=== PATIENT | male | born 1960 ===

== ENCOUNTER → 2021-06-28 | Outpatient (CLI) | payer BC, OTHER ==
[~2021-06-28] VITALS: Ht 188 cm; Wt 96.6 kg
[~2021-06-28] MED LIST: BEE POLLEN550 MG PO; CANDICIDAL CAP1 EACH PO; COQ-10100 MG PO; FISH OIL 1,0001 EAC9 PO; FLAXSEED340 GM PO; LODINE400 M1 PO; NAC600 MG PO; NEURONTIN300 MG PO; VALACYCLOVIR500 MG PO; VITAMIN B-121000 MC2 SUBLING; VITAMIN D350 MCG PO; ZINC50 M2 PO
--- NOTE | 2021-06-28 08:51 | NUR ---
Pain Clinic Assessment: 1. History of Osteoarthritis: Not Applicable History of Rheumatoid Arthritis: Not Applicable 2. Height: 6 ft. 2 in. 188.0 cm. Weight: 213.0 lb. oz. 96.616 kg. Patient's BMI: 27.3 3. Vital Signs: BP: Pulse: Resp: Temp: 02 Sat: ECG Mon: 4. Pain Intensity: 3 5. Fall Risk: Dizziness: N Needs help standing or walking: N Fallen in the last 3 months: N Fall risk comments: 6. Patient on Blood Thinner: None 7. History of Hypertension: N 8. Opioid Therapy greater than 6 weeks: N Opiate Contract Signed: 9. Risk Assessment Tool Provided: low-0 10. Functional Assessment Tool: 11. Recreational Drug Use: Past greater than 3 mos Drug Type: MARIJUANA Tobacco Use: Current Every Day Smoker Tobacco Type: Cigarettes Amount or Packs/day: 3/4 PACK How Many Years: 40 Alcohol Use: Yes Frequency: Daily Quant: 2-3
[2021-06-28 09:39] VITALS: BP 139/84
--- NOTE | 2021-07-05 09:13 | HPC ---
[facility] [place] [address] PAIN MANAGEMENT CONSULTATION Name: WALTERAUBREY [id number] Admission: 06/28/21 Attend Phys: Aubrey Hollis DO Discharge: Date of : 56 Report #: [id number] THIS REPORT FOR: cc: Arely Guillen APRN,Aubrey Valenzuela DO ~ cc: Moe Lozano MD DATE OF SERVICE: 06/28/2021 CHIEF COMPLAINT: Low back pain, right lower extremity pain with paresthesias. HISTORY OF PRESENT ILLNESS: As you know, the patient is a 60-year-old male who reports initial onset of pain somewhere in 10/2017, but this progressively worsened throughout late 2018. The patient denies specific injury or trauma. He states he has been trialing [id number] medications with rest and relaxation with minimal benefit. He states that his pain spontaneously began to intensify about 3-4 months ago leading to further evaluation through his primary care team. The patient ultimately underwent MRI of the lumbar spine, which showed changes from a posterior fusion at the L4-L5 level and an old anterior wedge compression deformity at T12. There was noted also changes at the L3-L4 level consistent with the patient's distribution of pain. Due to lack of improvement, conservative treatment options and the fact that he had changes at the L3-L4 level that would require more aggressive treatment. The patient was referred on to our clinic to discuss interventional therapies. The patient reports today his pain is steady and periodic. He describes pain as more of a burning and aching in sensation. He places his current pain score 3/10, daily average at 4/10, worst pain has been is 10/10. The patient states that standing, walking exacerbates symptoms, lying down tends to improve pain. He has been referred to our service to discuss interventional treatment options to address recurrent lumbar radiculopathy. PAST MEDICAL HISTORY: 1. Osteoarthritis. 2. Herpes simplex virus. 3. Hearing deficit. 4. Sleep disorder. PAST SURGICAL HISTORY: 1. Appendectomy. 2. Metastatic vasectomy. 3. Open reduction and internal fixation of left elbow. 4. Right finger surgery. 5. Lumbar fusion. SOCIAL HISTORY: The patient reports he is a current smoker, smokes 3/4 pack of [facility] [address] [place] [address] PAIN MANAGEMENT CONSULTATION Name: WATSONAUBREY [id number] Admission: 06/28/21 Attend Phys: Aubrey Hollis DO Discharge: Date of : 56 Report #: [id number] tobacco per day, has done so for 40 years. Denies IV or illicit drug use. Admits to 3 alcoholic beverages per day. He reports himself as retired, retired about 2 years and 9 months ago. He is not working. He is not receiving workmen's compensation nor is trying to obtain disability benefits. Not in litigation in regards to pain. He is unaccompanied at today's visit. REVIEW OF SYSTEMS: Positive for fever, night sweats, wearing corrective eyewear, hearing loss with tinnitus, nocturia. All other review of systems negative per 12-point review of systems other than those listed in history of present illness. Pain impact score 31/70, moderate interference of daily activities secondary to pain. ALLERGIES: PENICILLIN, CODEINE. CURRENT MEDICATIONS: Etodolac 400 mg once a day, valacyclovir 500 mg once a day, Canova-3 fish oil 1 tab per day, flaxseed oil 340 grams powder per day, Coenzyme Q10 100 mg per day, turmeric 1 tab per day, zinc, amino acid chelate 50 mg once a day, cholecalciferol 50 mcg per day, bee pollen 1 tab per day. IMAGING: MRI of the lumbar spine obtained 06/05/2019 shows postsurgical changes of fusion and laminectomy at L4-L5, diffuse disk bulge, left laterality, facet arthropathy resulting in bilateral neural foraminal narrowing and impingement upon the exiting left L3 nerve root. Mild diffuse annular bulge at L2-L3, most pronounced posterolaterally on the right. Mild posterior disk bulge at L5-S1. PHYSICAL EXAMINATION: VITAL SIGNS: Blood pressure 139/84, pulse 64, respiratory rate 16 and unlabored. The patient 99% on room air, height 6 feet 2 inches tall, weight 213 pounds, BMI calculated 27.3. GENERAL: Well-developed, well-nourished, well-hydrated 60-year-old male appearing stated age, pain is rated today 3/10. HEENT: Normocephalic, atraumatic. Pupils equal, round and responsive to light. Extraocular muscles are intact. Speech is fluent. He is wearing a mask in compliance with COVID-19 regulations. LUNGS: Clear, no wheeze, rhonchi or rales. CARDIOVASCULAR: Regular. No appreciable gallop, no rub. ABDOMEN: Soft. EXTREMITIES: Show no clubbing, no cyanosis and no edema. MUSCULOSKELETAL: Lower extremity strength equal and symmetrical 5/5, intact to light touch from L1 through S2 dermatomes. Seated straight leg raising negative. Supine straight leg raising positive on the right. Riley's test is negative. Modified Gaenslen's positive for axial back pain. Ankle clonus negative. Babinski is negative. Deep tendon reflexes are symmetrical at patella and Achilles. [facility] [address] [place] [address] PAIN MANAGEMENT CONSULTATION Name: AUBREY WATSON Room #: REG COLT Deidra#: [id number] Admission: 06/28/21 Attend Phys: Aubrey Hollis DO Discharge: Date of : 56 Report #: [id number] ASSESSMENT: 1. Symptomatic lumbar radiculopathy. 2. Displacement of lumbar intervertebral disk with radiculopathy. 3. Neural foraminal stenosis of lumbar spine. 4. Chronic intractable pain. PLAN: 1. Based on today's physical exam and history the patient has provided, the description the patient uses in regards to pain as well as descriptor he uses in regards to symptoms, likely source of the patient's pain is lumbar radiculopathy. The patient and I discussed at length the treatment options, we have to address lumbar radiculopathy. The following was discussed with the patient today after reviewing the patient's MRI and x-ray imaging obtained in 2019. We discussed physical therapy, stretching exercises, core strengthening as a treatment approach. We discussed medication management utilizing neuropathic medications such as amitriptyline, nortriptyline, Cymbalta, Lyrica or gabapentin. We discussed lumbar epidural injections under fluoroscopic guidance. We also discussed the possibility of a dorsal column stimulator and ultimately surgical decompression, which will likely be necessary. After reviewing risks and benefits of all proposed treatment options, the patient chose to begin with medication management. 2. The patient was provided a prescription of gabapentin 300 mg dose. He will start a rapid titration of the medication as follows. A prescription of #180 tablets were sent to the local pharmacy to begin this titration. The patient will start at 1 tab p.o. at bedtime for 3 nights, increase to 2 tabs p.o. at bedtime for 3 nights, then increase to 3 tabs p.o. at bedtime for 3 nights. If no improvement in symptoms, no side effects of sleepiness, disorientation, confusion, mental slowing, then increase to 1 tab in the morning and 3 tabs at night. Continue for 3 nights. If again no improvement in symptoms, no side effects, then 2 tabs in the morning and 3 tabs at night for 3 days and then ultimately to three tabs t.i.d. The patient was advised that anytime during the titration, he notes improvement in symptoms, he is to stabilize at that dose, no further escalation. If again the patient notes side effects, he can reduce to the dose prior continue that for another 3 nights, then reattempt escalation assuming no analgesic benefit. A prescription was sent via e-scribe to local pharmacy. 3. We plan to see the patient back in followup visit in approximately 30 days. At that time, review the efficacy of the medication adjustments made today. We did discuss the possibility of having the patient undergo an epidural injection under fluoroscopic guidance. He wishes to delay that option until he has a chance to trial medications more fully. 4. We wish to thank Dr. Lozano for the referral of this patient to our clinic. We will keep you apprised of his response to treatment as we address [address] [address] PAIN MANAGEMENT CONSULTATION Name: AUBREY WATSON Room #: REG CLMatt Gay#: [id number] Admission: 06/28/21 Attend Phys: Aubrey Hollis DO Discharge: Date of : 56 Report #: [id number] lumbar radicular symptoms. Again, we wish to thank you for the opportunity to see this patient in consultation. <ELECTRONICALLY SIGNED> By: Aubrey Hollis DO 07/05/2113 0720 [id number] Aubrey Hollis DO /nt
== END ==
LOC: PAIN 06:45
PROVIDERS: ATTEND Anesthesiology Pain Medicine
DX: G89.29 Other chronic pain (principal); M47.26 Other spondylosis with radiculopathy, lumbar region; M48.061 Spinal stenosis, lumbar region without neurogenic claudication; Z90.49 Acquired absence of other specified parts of digestive tract; Z88.0 Allergy status to penicillin; Z88.8 Allergy status to other drugs, medicaments and biological substances; Z79.899 Other long term (current) drug therapy

== ENCOUNTER → 2021-07-20 | Outpatient (CLI) | payer BC, OTHER ==
[~2021-07-20] VITALS: Ht 167.6 cm; Wt 98.2 kg
--- NOTE | ~2021-07-20 | HPC ---
[facility] [place] [address] PAIN MANAGEMENT CONSULTATION Name: AUBREY WATSON [facility] [id number] Admission: 07/20/21 Attend Phys: Aubrey Hollis DO Discharge: Date of : 56 Report #: [id number] THIS REPORT FOR: cc: Arely Guillen APRN,Aubrey Valenzuela DO ~ cc: Moe Ornelas MD DATE OF SERVICE: 07/20/2021 REFERRING PHYSICIAN: Dr. Zak Robertson. CHIEF COMPLAINT: Low back pain, right lower extremity pain and paresthesias. HISTORY OF PRESENT ILLNESS: As you know, the patient is a very pleasant 60-year-old male reporting initial onset of pain beginning in October 2017, progressively worsened throughout late 2018. He underwent fusion of the L4-L5 level with instrumentation. He had done very well post-procedurally, began to experience increasing pain in the low back, right anterior thigh consistent with the L3-4 distribution. He underwent imaging studies with Dr. Robertson which did show changes that have progressed at the 3-4 level that might require surgical options. The patient was referred on to our clinic to discuss conservative treatment options initially. We saw the patient in consultation per the request of Dr. Robertson 06/28/2021 where we started the patient on gabapentin therapy in hopes of improving symptoms as well as discussed the possibility of undergoing a lumbar epidural injection. The patient wished to trial the conservative treatment option initially. He is now at 900 mg b.i.d. of gabapentin. He is denying side effects, but also denying any significant pain improvement. He returns today in followup visit to discuss possibility of undergoing a lumbar epidural injection and make further adjustments in the gabapentin therapy. The patient is denying side effects of sleepiness, disorientation, confusion, or dysphoric effects with gabapentin. ALLERGIES: PENICILLIN, CODEINE. CURRENT MEDICATIONS: See chart. SOCIAL HISTORY: The patient denies IV or illicit drug use. He does partake in 3 alcohol beverages per day. He continues to smoke 3/4 pack tobacco per day. He has done this for about 40 years. He is retired, retired about 2 years and 9 months ago. He is unaccompanied today. IMAGING: No new imaging available. PHYSICAL EXAMINATION: VITAL SIGNS: Blood pressure 145/86, pulse is 57, respiratory rate 14 and unlabored. The patient 100% on room air. Height 5 feet 6 inches tall, weight [facility] [address] [place] [address] PAIN MANAGEMENT CONSULTATION Name: AUBREY WATSON [id number] Admission: 07/20/21 Attend Phys: Aubrey Hollis DO Discharge: Date of : 56 Report #: [id number] 216.6 pounds, BMI calculated 35.0. GENERAL: Well-developed, well-nourished, well-hydrated 60-year-old male appearing stated age, pain is rated today at around 2/10 at rest and 6/10 with activity. HEENT: Normocephalic, atraumatic. Pupils equal, round and responsive. He is wearing a mask in compliance with COVID-19 regulations. EXTREMITIES: Show no clubbing, no cyanosis. No appreciable edema. MUSCULOSKELETAL: Lower extremity strength equal and symmetrical, 5/5. Intact to light touch from L1 through S2 dermatomes. Seated straight leg raising negative. Supine straight leg raising remains positive on the right. ASSESSMENT: 1. Symptomatic lumbar radiculopathy. 2. Displacement of lumbar intervertebral disk with radiculopathy. 3. Neural foraminal stenosis of lumbar spine. 4. Chronic intractable pain. PLAN: The patient returns today in followup visit to discuss the possibility of undergoing a lumbar epidural injection. The patient is currently taking 900 mg gabapentin twice a day noticing no side effects, but also no significant pain improvement. He reports maybe 10-15% improvement overall. He is pleased at this point with the improvement he has seen with gabapentin and wishes to trial an epidural injection in hopes of building on that success. The patient has been advised risks and benefits of a lumbar epidural injection. These risks include but are not necessarily limited to bleeding, bruising, infection, worsening of pain, no relief of pain, also risk of temporary or permanent muscle weakness, temporary or permanent nerve damage, possible paralysis, and . The patient states he understood and wished to proceed. The patient and I did discuss the possibility of increasing gabapentin. At this point, I would recommend he remain at 900 mg b.i.d. If adjustments need to be made, we will increase to 900 mg in morning and 1200 mg at night for 3 nights, then increase to 1200 mg b.i.d. If again no improvement in symptoms, no side effects we will then beginning a titration for the noon hour to reach 1200 mg 3 times a day. The patient is agreeable with that plan. He will contact our clinic if the epidural injection does not provide excellent benefit. DESCRIPTION OF PROCEDURE: L3-4 interlaminar epidural steroid injection under fluoroscopic guidance. This is the first procedure of the first series that the patient is undergoing. After obtaining written consent, the patient was taken back to the fluoroscopy suite, placed in a prone position with pillow under the abdomen to decrease lumbar lordosis. The skin overlying the lumbosacral area was then prepped and draped in aseptic fashion. The L3-4 vertebral interspace was then identified by [facility] [address] [place] [address] PAIN MANAGEMENT CONSULTATION Name: AUBREY WATSON Room #: REG CL [facility].#: [id number] Admission: 07/20/21 Attend Phys: Aubrey Hollis DO Discharge: Date of : 56 Report #: [id number] AP fluoroscopy. The skin and subcutaneous tissue overlying the target site of injection was anesthetized with 3 mL 1% lidocaine. A 20-gauge, 3-1/2-inch Tuohy needle was then advanced under fluoroscopic guidance towards the epidural space using a right parasagittal approach. The epidural space was identified using loss of resistance to air technique. After negative aspiration for heme or cerebrospinal fluid, a total of 1 mL of Omnipaque was injected. A lumbar epidurogram was confirmed using both AP and lateral fluoroscopy. After negative aspiration for heme or cerebrospinal fluid, 5 mL of a solution containing 2 mL, 40 mg/mL, 80 mg total triamcinolone along with 3 mL of lidocaine 1% was injected in increments. Contrast spread was noted in posterior epidural space. The needle was then retracted approximately half way and needle tract flushed with 1 mL of 1% lidocaine. Needle was then removed. There were no apparent sensory or motor deficits in the lower extremity following the procedure. A sterile bandage was placed over the injection site. The heart rate, pulse, oximetry and blood pressure were continuously monitored after the procedure. There were no apparent complications. The patient tolerated the procedure well and was carefully escorted to the recovery room in stable condition. There were no apparent complications. After meeting discharge criteria, the patient was then discharged home. By: [id number] [id number] Aubrey Hollis DO /violet
[2021-07-20 08:08] VITALS: BP 145/86
--- NOTE | 2021-07-20 08:18 | NUR ---
Pain Clinic Assessment: 1. History of Osteoarthritis: Not Applicable History of Rheumatoid Arthritis: Not Applicable 2. Height: 5 ft. 6 in. 167.6 cm. Weight: 216.6 lb. oz. 98.249 kg. Patient's BMI: 35.0 3. Vital Signs: BP: 145/86 Pulse: 57 Resp: 14 Temp: 02 Sat: 100 ECG Mon: 4. Pain Intensity: 2 AT REST; 6 ACTIVITY 5. Fall Risk: Dizziness: N Needs help standing or walking: N Fallen in the last 3 months: N Fall risk comments: 6. Patient on Blood Thinner: None 7. History of Hypertension: N 8. Opioid Therapy greater than 6 weeks: N Opiate Contract Signed: 9. Risk Assessment Tool Provided: low-0 10. Functional Assessment Tool: 11. Recreational Drug Use: Past greater than 3 mos Drug Type: Tobacco Use: Current Every Day Smoker Tobacco Type: Cigarettes Amount or Packs/day: 1/2 PK/D How Many Years: Alcohol Use: Yes Frequency: Weekly Quant: 2 OR 3 ON 4 TO 5 DAYS/WK
== END ==
LOC: PAIN 06:55
PROVIDERS: ATTEND Anesthesiology Pain Medicine
DX: M51.16 Intervertebral disc disorders with radiculopathy, lumbar region (principal); M48.061 Spinal stenosis, lumbar region without neurogenic claudication; G89.29 Other chronic pain; F17.210 Nicotine dependence, cigarettes, uncomplicated; Z98.890 Other specified postprocedural states; Z79.899 Other long term (current) drug therapy; Z88.0 Allergy status to penicillin; Z88.8 Allergy status to other drugs, medicaments and biological substances